=== PATIENT | male | born 1955 | race Caucasian/White ===

== ENCOUNTER → 2016-09-05 | Outpatient (CLI) | payer OTHER ==
[~2016-09-05] MED LIST: ASPI81TA50 PO; CELE100C PO; FEXO60TA25 PO; MULT-246 PO; OMEP20TA63 PO; SIMV40TA PO
--- NOTE | 2016-09-05 17:17 | KCIC ---
MR LUMBAR SPINE HISTORY:Reason For StudyReason: LOW BACK HIP PAIN / Spl. Instructions: / History: Pain about 3 weeks. Radiates from Lt hip to knee Technique: Sagittal T2, sagittal STIR, and sagittal T1-weighted images were obtained. Additional axial T1 and T2 weighted imaging was also performed. FINDINGS: Alignment and curvature are within normal limits. There are no compression fractures. Bone marrow signal is within normal limits. The conus terminates normally at the level of T12. Visualized intra-abdominal contents are within normal limits. The level of L5-S1 there is no spinal stenosis. The level of L4-L5 there is bilateral facet hypertrophy. There are moderate inflammatory changes associated with the left facet joint with facet joint effusions and adjacent synovial cysts. The edema extends into the left paravertebral spinous musculature. The presence of the synovial cyst causes severe left foraminal stenosis and left lateral recess stenosis probable for left L5 or L4 radiculopathy symptoms. The remaining intervertebral disc levels are well maintained. Impression: - There is acute facet inflammation involving the left facet joint at L4-L5. Septic facet arthritis cannot be excluded. The presence of left-sided synovial cysts causes severe left foraminal and lateral recess stenosis probable for left L4 or L5 radiculopathy symptoms. Correlate for clinical signs and symptoms of infection. An attempt was made to call the clinic where this patient receives regular medical care at 5:10 p.m. on 09/05/2016, however the office was closed and no physician was able to be contacted. Therefore this physician made a phone call to the patient's home phone number and a voicemail was left with instruction to seek further care if there are signs of fever. Electronically signed by: Olegario Rich (Sep 05, 2016 17:16:01)
== END | disposition home or self-care (01) ==
LOC: KCIC MRI 15:56
PROVIDERS: ATTEND Family Medicine
DX: M48.06 Spinal stenosis, lumbar region (principal); M71.38 Other bursal cyst, other site
CPT/HCPCS: 72148

== ENCOUNTER → 2019-07-27 | Outpatient (CLI) | payer OTHER ==
--- NOTE | 2019-07-27 15:27 | KCIC ---
CERVICAL SPINE WO CONTRAST DATE: 07/27/2019 9:30 AM INDICATION: Chronic neck pain TECHNIQUE: Multiplanar multisequence magnetic resonance imaging of the cervical spine was performed without administration of intravenous contrast using the standard cervical spine protocol. COMPARISON: None. FINDINGS: The cervical spine is normally aligned. No acute fracture. The intervertebral discs are normal. Bone marrow signal intensity is normal. The spinal cord is normal in signal intensity. On the limited views of the cranial cavity and brain, the cerebellum and bettye have normal morphology and signal characteristics. No Chiari malformation. Partially visualized right thyroid nodule measuring 2.5 cm. Normal signal voids are present in the vertebral arteries. C2-3: Disc osteophyte complex. Uncovertebral hypertrophy. Mild left facet arthropathy. Moderate left neural foraminal narrowing. No spinal stenosis. C3-4: Disc osteophyte complex. Uncovertebral hypertrophy. Moderate right and mild left facet arthropathy. Moderate bilateral neural foraminal narrowing. No spinal stenosis. C4-5: Disc osteophyte complex. Uncovertebral hypertrophy. Moderate right and mild left facet arthropathy. Moderate right and mild left neural foraminal narrowing. Mild spinal stenosis. C5-6: Disc osteophyte complex. Uncovertebral hypertrophy. Mild right and moderate left facet arthropathy. Mild right and moderate left neural foraminal narrowing. Mild spinal stenosis. C6-7: Disc osteophyte complex. Uncovertebral hypertrophy. Ligamentum flavum thickening. Mild bilateral neural facet arthropathy. Mild right and moderate to severe left neural foraminal narrowing. Moderate spinal stenosis. C7-T1: Uncovertebral hypertrophy. Mild facet arthropathy. Mild bilateral neural foraminal narrowing. No spinal stenosis. IMPRESSION: 1. Moderate cervical spondylosis, detailed level by level above. 2. Incompletely characterized right thyroid nodule measuring 2.5 cm. This could be further evaluated with dedicated thyroid ultrasound. Electronically signed by: Cam Hunter MD (07/27/2019 3:24 PM) [facility]
== END | disposition home or self-care (01) ==
LOC: KCIC MRI 09:08
PROVIDERS: ATTEND Family Medicine
DX: M48.03 Spinal stenosis, cervicothoracic region (principal); M47.812 Spondylosis without myelopathy or radiculopathy, cervical region; M12.88 Other specific arthropathies, not elsewhere classified, other specified site; M25.78 Osteophyte, vertebrae; E04.1 Nontoxic single thyroid nodule; G89.29 Other chronic pain
CPT/HCPCS: 72141

== ENCOUNTER → 2019-08-18 | Outpatient (CLI) | payer OTHER ==
[~2019-08-18] MED LIST changes: +CETI10TA24 PO
--- NOTE | 2019-08-18 21:57 | PAIN ---
DATE OF SERVICE: 08/18/2019 INITIAL CONSULTATION FOR PAIN CLINIC CHIEF COMPLAINT: Neck and bilateral upper extremity pain. HISTORY OF PRESENT ILLNESS: This is a 63-year-old male who presents with history of pain in the base of neck and shoulders, bilateral upper extremities, mostly in the shoulders. 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 The patient reports he has had physical therapy in the past, been doing stretching and strength exercises on his own, has had epidural steroid injections in the past as well, which were helpful, also trigger point injections, which were helpful. The patient is taking Tylenol as well as Motrin, neither of which is significantly decreased the pain. The patient reports it awakens him from sleep only very rarely, does not affect his bowel or bladder control or his ability to walk. He does have some low back pain as well, worse on the right side, but it is secondary to the neck and the patient describes the pain as intermittent in intensity, aching and dull, cramping, shooting in the upper extremities with repetitive motions, lifting items, working out. 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 The patient reports his disability rating from 0-10, 10 being the worst, is a 2 with family home responsibilities, recreation, occupation and sexual behavior, 0 with social activity and self-care, and 4 with life support activities. The patient did have MRI scan of the cervical spine as well as lumbar spine. Cervical spine is showing moderate cervical spondylosis with C3-C4 through C6-C7 disk osteophyte complexes, C5-C6 and C6-C7 shows mild right and moderate left neural foraminal narrowing and C5-C6, C6-C7 shows mild bilateral facet arthropathy, mild right and [id number] left neural foraminal narrowing with moderate spinal stenosis. PAST MEDICAL HISTORY: Significant for arthritis. PREVIOUS SURGERY: Include a left hip replacement in 2002, right hip replacement in 2002, lumbar laminectomy in 2016, tonsillectomy at age 6 and cholecystectomy in 2009, ORIF of left wrist 1984 and right foot surgery in 2009. CURRENT MEDICATIONS: Include Zyrtec, Zocor, Prilosec and daily baby aspirin. ALLERGIES: The patient has no known drug allergies. FAMILY HISTORY: Significant for diabetes and hypertension. SOCIAL HISTORY: The patient drinks about 1 alcoholic drink a week, does not smoke. Denies any illegal, illicit or recreational drugs. 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 REVIEW OF SYSTEMS: The patient's review of systems is positive for those items mentioned in history of present illness. All systems reviewed and otherwise negative. It is complete, full and well documented on the patient's chart. PHYSICAL EXAMINATION: VITAL SIGNS: The patient's blood pressure 140/94, pulse 68, respirations 16, temperature 98.2 degrees Fahrenheit, height is 5 feet 11 inches, weight is 227 pounds. GENERAL: The patient is awake, alert, oriented, appropriate, very pleasant demeanor. HEENT: Head shows normocephalic, atraumatic. Extraocular movements are intact and symmetrical. Oral cavity shows mucous membranes moist and pink. Dentition is intact. NECK: Shows anterior throat supple without palpable lymphadenopathy noted. Swallow reflex symmetrical. CHEST: Shows normal on inspection. Breath sounds are clear bilaterally. HEART: Shows S1, S2 clear. No murmurs auscultated. ABDOMEN: Soft, nontender, nondistended. No palpable organomegaly is noted. No rebound or guarding demonstrated. BACK: Shows spine grossly in the midline, normal-appearing cervical lordotic curvature, thoracic kyphotic curvature and lumbar lordotic curvature. Cervical paraspinous muscle shows symmetrical on inspection, on palpation shows some moderate tenderness diffusely in the inferior aspect of the cervical paraspinous musculature and superior medial trapezius bilaterally, but is symmetrical without evidence of atrophy, hypertrophy, no trigger points, no asymmetry. The patient has good rotational motion of cervical spine, both laterally greater than 45 degrees closer to 90 degrees right and left as well as full extension, full forward flexion without significant increase in pain. EXTREMITIES: The patient's upper extremities show deep tendon reflexes at 2+ in the biceps and triceps tendons. Motor exam is strong with [employer] worker strength rated at 5/5 as is bicep and tricep flexion without significant pain reported in the shoulders or neck. The patient shows good shoulder shrug without loss of strength on resistance with some mild tenderness in the bilateral shoulders and base of the neck, but without loss of strength on resistance. This is true with abduction of the shoulder to 90 degrees with no loss of strength on resistance as well. Peripheral pulses are 2+ radial. No peripheral edema is noted bilaterally. Upper extremities are warm and dry to touch, equal in color and appearance. The patient's lower extremities show deep tendon reflexes at 1+ in the patellar and tendo calcaneus tendons. Motor exam is strong with 5/5 dorsiflexion, extension, quadriceps and hamstring flexion. Peripheral pulses are 1+ posterior tibia. No peripheral edema is noted bilaterally. The patient's skin shows warm and dry, good turgor. No edema. No sores, rashes or bruising throughout. IMPRESSION: 1. This is a 63-year-old male with long history of neck, bilateral upper extremity pain, worse over the past year or so. 2. MRI scan of cervical spine as noted. 3. History of arthritis. PLAN: Options were discussed with the patient including conservative medical managements, physical therapies and interventional techniques. He would like to pursue interventional techniques as he has done well with these in the past by his report. We will wait for preauthorization with patient's insurance provider and have the patient return for cervical epidural steroid injection at the C6-C7 level, translaminar approach. In the meantime, the patient will try Medrol Dosepak. The patient was given instruction as well as side effects to be aware of with the medication and we will continue with stretching and strengthening exercises, and working out exercise as tolerated and he will return as scheduled. ESHA DANIELSON MD DR: FINESSE/ramesh JOB#: [id number] / [id number]
== END | disposition home or self-care (01) ==
LOC: PNCL 08:00
PROVIDERS: ATTEND Anesthesiology
DX: M54.2 Cervicalgia (principal); M79.601 Pain in right arm; M79.602 Pain in left arm; M19.90 Unspecified osteoarthritis, unspecified site; Z90.49 Acquired absence of other specified parts of digestive tract; Z96.643 Presence of artificial hip joint, bilateral
CPT/HCPCS: G0463

== ENCOUNTER → 2019-08-25 | Outpatient (CLI) | payer OTHER ==
[~2019-08-25] MED LIST changes: +IOHEXOL 180 MG/ML 10 ML VIAL. ONE; +methylPREDNISolone ACETATE 40 MG/ML VIAL. ONE; +methylPREDNISolone ACETATE 80 MG/ML VIAL. ONE
--- NOTE | 2019-08-25 09:08 | PAIN ---
DATE OF SERVICE: 08/25/2019 PROGRESS NOTE FOR PAIN CLINIC DIAGNOSES: 1. Cervical radiculopathy with cervical degenerative disk disease and cervical spinal stenosis. 2. Lumbar radiculopathy with lumbar degenerative disk disease and post-lumbar laminectomy syndrome. HISTORY OF PRESENT ILLNESS: The patient is a 63-year-old male who returns for followup status post initial evaluation and preauthorization for cervical epidural steroid injection. The patient reports still significant pain in the base of neck and right shoulder, upper extremity, but his main complaint is low back and right lower extremity pain, which has gotten worse since his last visit. He has had lumbar surgery at L4-L5 in the past and is having radicular pain down the right leg as well in the posterior gluteus, lateral thigh, anterior thigh, medial thigh to the medial calf. The patient reports the pain in the neck and shoulders likewise as significant, describes it as sharp and tight, stabbing, becoming more constant in both regions. The patient reports it is an 8 on a scale of 10 at its worst over the past week, 7 on average, 5 at its least and is a 7 today. The patient reports it awakens him from sleep at least 2-3 times a night, does not affect his bowel or bladder control and no loss of motor function. PHYSICAL EXAMINATION: VITAL SIGNS: The patient's blood pressure is 151/92, pulse 73, respirations are 18, temperature is 97.8 degrees Fahrenheit, height is 5 feet 11 inches, weight is 225 pounds. GENERAL: The patient is awake, alert, oriented, appropriate, very pleasant demeanor. HEENT: Head shows normocephalic, atraumatic. Extraocular movements are intact and symmetrical. Oral cavity: Mucous membranes moist and pink. Dentition is intact. NECK: Shows anterior throat supple without palpable lymphadenopathy noted. Swallow reflex symmetrical. CHEST: Shows normal on inspection. Breath sounds are clear to auscultation bilaterally. HEART: Shows S1, S2 clear. No murmurs auscultated. ABDOMEN: Soft, nontender, nondistended. No palpable organomegaly is noted. No rebound or guarding demonstrated. BACK: Shows spine grossly in the midline. Normal appearing thoracic kyphosis and cervical lordotic curvature. Lumbar lordotic curve is slightly flattened with well-healed surgical scar noted. Lumbar paraspinous muscle shows symmetrical on inspection, on palpation shows some moderate tenderness diffusely bilaterally going diffusely without significant radiation. The patient's cervical paraspinous muscle shows symmetrical on inspection, with palpation shows some mild tenderness diffusely in the inferior aspect of the cervical paraspinous musculature bilaterally, but only diffusely without significant radiation or atrophy or hypertrophy. The patient has good rotational motion of cervical spine, both laterally as well as extension and flexion without significant difficulty or pain reported. EXTREMITIES: Upper extremities show deep tendon reflexes 2+ in the biceps, triceps tendons. Motor exam is strong with small parts assembler strength rated at 5/5 as is biceps and triceps flexion. Lower extremities show deep tendon reflexes 1+ in the patellar and tendo calcaneus tendons. Motor exam is 4/5 with dorsiflexion, extension on the right and 5/5 on the left. Peripheral pulses are 1+ posterior tibial. No peripheral edema in the lower extremities as well. Options were discussed with the patient. The patient's old chart was reviewed as his current medication regimen updated. Current review of systems updated today as well. We will proceed with a cervical epidural steroid injection today with fluoroscopic guidance. Risks were again discussed including, but not limited to bleeding, infection, possibility of epidural hematoma, subsequent neurological compromise, dural puncture, headaches, spinal cord and/or nerve damage, side effects of steroid medication and poor results regarding pain control. The patient understands and wished to proceed. The patient will return to clinic in approximately 2 weeks for followup. He was counseled on return appointment, activity level and side effects to be aware of. We did discuss potential lumbar epidural steroid injection on his return. He does have a clinical L4-L5 right-sided lumbar radiculopathy. DIAGNOSES: Cervical radiculopathy with cervical degenerative disk disease and cervical spinal stenosis. PROCEDURE: Cervical epidural steroid injection, translaminar approach C6-C7 level using C-arm fluoroscopic guidance under sterile prep and drape using local anesthetic. MEDICATION INJECTED: A total of 120 mg Depo-Medrol plus 5 mL of preservative-free normal saline and 2 mL of contrast. CONDITION AT DISCHARGE: Stable. The patient tolerated the procedure well, had no complications. ESHA DANIELSON MD DR: FINESSE/ramesh JOB#: [id number] / [id number]
== END ==
LOC: PNCL 08:14
PROVIDERS: ATTEND Anesthesiology
DX: M50.123 Cervical disc disorder at C6-C7 level with radiculopathy (principal); M48.02 Spinal stenosis, cervical region
CPT/HCPCS: 62321; J1030; J1040; Q9965

== ENCOUNTER → 2019-09-14 | Outpatient (CLI) | payer OTHER ==
[~2019-09-14] MED LIST changes: +MIRA25TA PO
--- NOTE | 2019-09-15 00:46 | PAIN ---
DATE OF SERVICE: 09/14/2019 PROGRESS NOTE FOR PAIN CLINIC DIAGNOSES: 1. Cervical radiculopathy with cervical degenerative disk disease and cervical spinal stenosis. 2. Lumbar radiculopathy with lumbar degenerative disk disease and post-lumbar laminectomy syndrome. HISTORY OF PRESENT ILLNESS: The patient is a 63-year-old male who returns for followup status post cervical epidural steroid injection x 1 with very good results with the neck and shoulders with about 80% improvement. The patient reports his chief complaint is low back and right lower extremity pain. We have been awaiting preauthorization with his insurance provider. He has finally obtained that and would like to proceed today. We discussed a lumbar epidural steroid injection. The patient reports still significant pain in low back, right lower extremity, posterior gluteus, posterior thigh, lateral thigh and anterior thigh. The patient reports it is sharp and shooting, stabbing, tingling, radiating, constant with activity, worse with walking, standing and better with sitting or lying down, but does awaken him from sleep occasionally, but not most nights. The patient reports it is a 7 on a scale of 10 at its worst over the past week 5 on average, 3 at its least and is a 6 today. The patient reports it is sharp, stabbing and radiating. No new motor or sensory deficits. Reports no new bowel or bladder incontinence. PHYSICAL EXAMINATION: VITAL SIGNS: The patient's blood pressure 141/102, pulse 80, respirations 16, temperature 98.2 degrees Fahrenheit and weight is 228 pounds. GENERAL: The patient is awake, alert, oriented, appropriate, very pleasant demeanor. HEENT: Shows normocephalic, atraumatic. Extraocular movements intact and symmetrical. Oral cavity: Mucous membranes moist and pink. Dentition is intact. NECK: Shows anterior throat supple without palpable lymphadenopathy noted. Swallow reflex symmetrical. CHEST: Shows normal on inspection. Breath sounds are clear bilaterally. HEART: Shows S1, S2 clear. No murmurs auscultated. ABDOMEN: Soft, nontender, nondistended. BACK: Shows spine grossly in the midline. Normal-appearing thoracic kyphosis, cervical lordotic curvature and lumbar lordotic curvature is flattened with well-healed surgical scar noted in the midline. Lumbar paraspinous muscle shows symmetrical on inspection, on palpation shows some moderate tenderness diffusely bilaterally going diffusely without significant radiation. EXTREMITIES: The patient's lower extremities show deep tendon reflexes at 1+ in the patellar and tendo calcaneus tendons. Motor exam is approximately 4 on a scale of 5 on the right and 5/5 on the left with dorsiflexion and extension. Peripheral pulses are 1+. No peripheral edema is noted. Options were discussed with the patient. The patient's old chart was reviewed. His current medication regimen updated. Current review of systems updated today as well. We will proceed with a lumbar epidural steroid injection today with fluoroscopic guidance. Risks were again discussed including, but not limited to bleeding, infection, possibility of epidural hematoma, subsequent neurological compromise, dural puncture, headaches, spinal cord and/or nerve damage, side effects of steroid medication and poor results regarding pain control. The patient understands and wished to proceed. The patient will return to clinic in approximately 2 weeks for followup. She was counseled on return appointment, activity level and side effects to be aware of. DIAGNOSIS: Lumbar radiculopathy with lumbar degenerative disk disease and lumbar post-laminectomy syndrome. PROCEDURE: Lumbar epidural steroid injection, translaminar approach L5-S1 level using C-arm fluoroscopic guidance under sterile prep and drape using local anesthetic. MEDICATION INJECTED: A total of 120 mg Depo-Medrol plus 10 mL of preservative-free normal saline, 2 mL of contrast. CONDITION AT DISCHARGE: Stable. The patient tolerated the procedure well, had no complications. ESHA DANIELSON MD DR: FINESSE/ramesh JOB#: [id number] / [id number]
== END ==
LOC: PNCL 13:58
PROVIDERS: ATTEND Anesthesiology
DX: M51.16 Intervertebral disc disorders with radiculopathy, lumbar region (principal); M50.10 Cervical disc disorder with radiculopathy, unspecified cervical region; M96.1 Postlaminectomy syndrome, not elsewhere classified; M48.02 Spinal stenosis, cervical region
CPT/HCPCS: 62323; J1030; J1040; Q9965

== ENCOUNTER → 2019-09-29 | Outpatient (CLI) | payer OTHER ==
[~2019-09-29] MED LIST changes: -IOHEXOL 180 MG/ML 10 ML VIAL. ONE; -methylPREDNISolone ACETATE 40 MG/ML VIAL. ONE; -methylPREDNISolone ACETATE 80 MG/ML VIAL. ONE
--- NOTE | 2019-09-29 11:57 | PAIN ---
DATE OF SERVICE: 09/29/2019 PROGRESS NOTE FOR PAIN CLINIC DIAGNOSES: 1. Cervical radiculopathy with cervical degenerative disk disease and cervical spinal stenosis. 2. Lumbar radiculopathy with lumbar degenerative disk disease and lumbar post-laminectomy syndrome. HISTORY OF PRESENT ILLNESS: The patient is a 64-year-old male who returns for followup status post cervical epidural steroid injection x 1 with about 80% improvement and now lumbar epidural steroid injection x 1 with about 60% improvement. The patient reports it is still helpful with the pain even about 2 weeks since the injection. The patient reports still pain in the low back, right lower extremity, posterior gluteus, posterolateral thigh, lateral anterior thigh, posterior calf on the right side. The patient reports it is stabbing, aching, dull, tight, but much better than it was. The patient increased his distance of walking, doing work activities, sleeping much better. Still some trouble with the right side when he is rolling with sleep from one side to the other. The patient reports the pain is a 5 on a scale of 10 at its worst over the past week, 3 on average, 2 at its least and 3 today. The patient reports it is aching and sharp and stabbing in the right leg. The neck and shoulder is doing much better and he is quite pleased with his progress in that region. The patient reports no new motor or sensory deficits, no new bowel or bladder incontinence or other complaints. PHYSICAL EXAMINATION: VITAL SIGNS: The patient's blood pressure 161/102, pulse 84, respirations 16, temperature 98.6 degrees Fahrenheit, height is 5 feet 11 inches and weight is 221 pounds. GENERAL: The patient is awake, alert, oriented, appropriate, very pleasant demeanor. HEENT: Shows normocephalic, atraumatic. Extraocular movements are intact and symmetrical. Oral cavity: Mucous membranes moist and pink. Dentition is intact. NECK: Shows anterior throat supple without palpable lymphadenopathy noted. Swallow reflex symmetrical. CHEST: Shows normal on inspection. Breath sounds are clear bilaterally. HEART: Shows S1, S2 clear. No murmurs auscultated. ABDOMEN: Soft, nontender, nondistended. No palpable organomegaly is noted. No rebound or guarding demonstrated. BACK: Shows spine grossly in the midline. Normal appearing thoracic kyphosis and lumbar lordotic curvature. Lumbar paraspinous muscle shows symmetrical on inspection, on palpation shows some [id number] tenderness diffusely in the middle and lower distribution of paraspinous muscles, but only diffusely without significant radiation. Some mild tenderness over the posterior superior iliac spine on the right only but not the left. The patient does show good rotational motion of lumbar spine both laterally as well as extension and flexion without significant pain reported. EXTREMITIES: The patient's lower extremities show deep tendon reflexes 1+ in the patellar and tendo calcaneus tendons. Motor exam is 4 on a scale of 5 on the right with quadriceps and hamstring flexion and 5/5 on the left. Peripheral pulses are 1+ posterior tibia. No peripheral edema is noted. IMPRESSION: Options were discussed with the patient. The patient's old chart was reviewed as his current medication regimen updated. Current review of systems updated today as well. We will preauthorize the patient for a second lumbar epidural steroid injection. The patient will try Medrol Dosepak in the meantime as he had good success with these in the past. The patient was given instruction as well as side effects to be aware of with the medication and will follow up for lumbar epidural steroid injection at L5-S1 translaminar approach as scheduled. ESHA DANIELSON MD DR: FINESSE/ramesh JOB#: [id number] / [id number]
== END ==
LOC: PNCL 09:31
PROVIDERS: ATTEND Anesthesiology
DX: M51.16 Intervertebral disc disorders with radiculopathy, lumbar region (principal); M96.1 Postlaminectomy syndrome, not elsewhere classified; M50.10 Cervical disc disorder with radiculopathy, unspecified cervical region; M48.02 Spinal stenosis, cervical region
CPT/HCPCS: G0463

== ENCOUNTER → 2019-10-13 | Outpatient (CLI) | payer OTHER ==
[~2019-10-13] MED LIST changes: +IOHEXOL 180 MG/ML 10 ML VIAL. ONE; +TELM40TA PO; +methylPREDNISolone ACETATE 40 MG/ML VIAL. ONE; +methylPREDNISolone ACETATE 80 MG/ML VIAL. ONE
--- NOTE | 2019-10-13 11:11 | PAIN ---
DATE OF SERVICE: 10/13/2019 PROGRESS NOTE FOR PAIN CLINIC DIAGNOSES: 1. Lumbar radiculopathy with lumbar degenerative disk disease and lumbar post-laminectomy syndrome. 2. Cervical radiculopathy with cervical degenerative disk disease and cervical spinal stenosis. HISTORY OF PRESENT ILLNESS: The patient is a 64-year-old male who returns for followup status post lumbar epidural steroid injection x 1 as well as cervical epidural steroid injection x 1 each with very good success. The patient reports about 80% improvement with the cervical spine and about 60% with the lumbar spine injections. The patient reports his main complaint is low back and right lower extremity pain, posterior gluteus, posterior thigh, and lateral thigh. The patient reports it is sharp, tight, stabbing, is thigh is doing better though and he is gradually getting more and more improvement. The patient reports it is a 4 on a scale of 10 at its worst in the past week, 3 on average, 2 at its least and is a 3 today. The patient reports no new motor or sensory deficits, no new bowel or bladder incontinence and increase doing household activities with greater ease and comfort, sleeping better as well. It does not awaken him from sleep. PHYSICAL EXAMINATION: VITAL SIGNS: The patient's blood pressure is 149/95, pulse 71, respirations 20, temperature is 98.6 degrees Fahrenheit, height is 5 feet 11 inches and weight is 230 pounds. GENERAL: The patient is awake, alert, oriented, appropriate, very pleasant demeanor. HEENT: Head shows normocephalic, atraumatic. Extraocular movements are intact and symmetrical. Oral cavity: Mucous membranes moist and pink. Dentition is intact. NECK: Shows anterior throat supple without palpable lymphadenopathy noted. Swallow reflex symmetrical. CHEST: Shows normal on inspection. Breath sounds clear to auscultation bilaterally. HEART: Shows S1, S2 clear. No murmurs auscultated. ABDOMEN: Soft, nontender, nondistended. BACK: Shows spine grossly in the midline. Normal appearing thoracic kyphosis, cervical lordotic curvature and some flattening of lumbar lordotic curvature. Lumbar well-healed surgical scar noted. Lumbar paraspinous muscle shows symmetrical on inspection, with palpation shows some moderate tenderness diffusely in the low lumbar distribution bilaterally, but only diffusely without significant radiation. The patient has good rotational motion of lumbar spine, both laterally as well as extension and flexion without difficulty. EXTREMITIES: The patient's lower extremities show deep tendon reflexes at 1+ in the patellar and tendo calcaneus tendons. Motor exam is approximately 4 on a scale of 5 on the right with dorsiflexion and extension, 5/5 on the left. Peripheral pulses are 1+ posterior tibia. No peripheral edema is noted. Options were discussed with the patient. The patient's old chart was reviewed as well as his current medication regimen updated. Current review of systems was updated today as well. We will proceed with the second in this series lumbar epidural steroid injection today with fluoroscopic guidance. Risks were again discussed including, but not limited to bleeding, infection, possibility of epidural hematoma, subsequent neurological compromise, dural puncture, headaches, spinal cord and/or nerve damage, side effects of steroid medication and poor results regarding pain control. The patient understands and wished to proceed. The patient will return to clinic in approximately 2 weeks for followup. He was counseled on return appointment, activity level and side effects to be aware of. DIAGNOSIS: Lumbar radiculopathy with lumbar degenerative disk disease and lumbar post-laminectomy syndrome. PROCEDURE: Lumbar epidural steroid injection, translaminar approach L5-S1 level using C-arm fluoroscopic guidance under sterile prep and drape using local anesthetic. MEDICATION INJECTED: A total of 120 mg Depo-Medrol plus 10 mL of preservative-free normal saline and 2 mL of contrast. CONDITION AT DISCHARGE: Stable. The patient tolerated the procedure well, had no complications. ESHA DANIELSON MD DR: FINESSE/ramesh JOB#: [id number] / [id number]
== END | disposition home or self-care (01) ==
LOC: PNCL 09:30
PROVIDERS: ATTEND Anesthesiology
DX: M51.16 Intervertebral disc disorders with radiculopathy, lumbar region (principal); M96.1 Postlaminectomy syndrome, not elsewhere classified; M50.123 Cervical disc disorder at C6-C7 level with radiculopathy; M48.02 Spinal stenosis, cervical region; Z98.890 Other specified postprocedural states
CPT/HCPCS: 62323; J1030; J1040; Q9965

== ENCOUNTER → 2021-06-25 | Outpatient (CLI) | payer OTHER ==
[~2021-06-25] MED LIST changes: -CETI10TA24 PO; +CETI10TA74 PO; -IOHEXOL 180 MG/ML 10 ML VIAL. ONE; -methylPREDNISolone ACETATE 40 MG/ML VIAL. ONE; -methylPREDNISolone ACETATE 80 MG/ML VIAL. ONE
--- NOTE | 2021-06-25 15:20 | PDOC ---
Progress Note - Pain Clinic Date of Service: DOS: DATE: 06/25/21 TIME: 15:16 Diagnosis: Dx: Cervical radiculopathy with cervical degenerative disease and cervical spinal stenosis Lumbar radiculopathy with lumbar degenerative disease and lumbar postlaminectomy syndrome History or Present Illness: HPI: 65-year-old male returns status post cervical epidural steroid injection and lumbar epidural injection last seen October 2019 patient very well with about 80% improvement with a cervical injection and 75% improvement with the lumbar injections patient reports pain is returning in both regions but his main complaint is neck and right upper extremity with radicular pain in the right shoulder right upper extremity right posterior deltoid into the triceps and into the forearm with repetitive motions of weightbearing and lifting, 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 Patient reports no loss of motor function but significant fatigability of the right upper extremity with repetitive motion reaching over his head with his right hand and disturbed sleep occasionally patient reports most night he sleeps fairly well however patient reports the pain is an 8 on scale 10 is worse over the past week 5 on average to its least and is a 5 today patient scribes aching sharp tight shooting can be constant and severe in the right upper extremity as well. Patient reports no motor loss no bowel or bladder incontinence. Physical Exam: VS: Blood pressure is 136/77 pulse is 73 respirations are 18 temperature is 98.8 F height is 511 inches weight is 239 pounds PE: PHYSICAL EXAMINATION: GENERAL: The patient is awake, alert, oriented, appropriate, very pleasant in demeanor HEENT: Shows normocephalic, atraumatic. Extraocular movements are intact and symmetrical. Oral cavity: Mucous membranes moist and pink. Dentition is intact. NECK: Shows anterior throat supple without palpable lymphadenopathy noted. Swallow reflex symmetrical. CHEST: Shows normal on inspection. Breath sounds are clear bilaterally, distant no rales rhonchi or wheezes auscultated. HEART: Shows S1, S2 clear. No murmurs auscultated. ABDOMEN: Soft, nontender, nondistended. No palpable organomegaly is noted. BACK: Shows spine grossly in the midline. Normal-appearing cervical lordotic curvature. Cervical paraspinous muscles show symmetrical with inspection, on palpation some moderate tenderness diffusely in the inferior aspect the cervical paraspinous muscles on the right with radiation to the superior medial trapezius but without trigger points without atrophy hypertrophy. Patient is full rotation motion cervical spine both laterally as well as full extension full forward flexion without significant difficulty. There is slightly increased thoracic kyphosis, some minor flattening of the lumbar lordotic curvature. Lumbar paraspinous muscles show symmetrical on inspection, on palpation shows some moderate tenderness diffusely throughout the upper, middle and lower distribution of the paraspinous muscles without specific trigger points, without radiation of pain. The patient has good rotational motion of the lumbar spine, both laterally as well as extension and flexion without significant difficulty. No tenderness over the spinous processes, sacrum or sacroiliac regions. EXTREMITIES: Lower extremities show deep tendon reflexes 2+ in the patellar and tendo calcaneus tendons. Motor exam is 4 on a scale of 5 with right dorsiflexion, extension, quadriceps and hamstring flexion and 5/5 on the left. Peripheral pulses are 1+ posterior tibial. No peripheral edema is noted bilaterally. Lower extremities are warm and dry to touch, equal in color and appearance. Upper extremity show deep tendon reflexes 2+ in the bicep biceps tendons, motor exam strong with copyright expert strength rated 5 out of 5 as is bicep and tricep flexion bilaterally. Peripheral pulses are 2+ radial no peripheral edema is noted bilaterally. Shoulder shrug strong and intact without loss of strength on resistance bilaterally. SKIN: Shows warm and dry, good turgor. No edema. No sores, rashes or bruising throughout. Procedure: Procedure: Options were discussed with the patient. Patient's old chart was reviewed his current medication regimen updated current review of systems updated today as well. We will preauthorize patient for a cervical epidural steroid injection with clinical radicular symptoms in the C6-7 dermatomal distribution on the right. Once approved patient return for a translaminar approach C6-7 cervical epidural steroid injection with fluoroscopic guidance. In the meantime, patient continue with stretching strength exercise as well as oral analgesics as currently. Medication Injected: Med Injected: None Condition at Discharge: Condition at Discharge: Condition at discharge is stable. ESHA DANIELSON MD Jun 25, 2021 15:20
== END | disposition home or self-care (01) ==
LOC: PNCL 14:15
PROVIDERS: ATTEND Anesthesiology
DX: M50.10 Cervical disc disorder with radiculopathy, unspecified cervical region (principal); M48.02 Spinal stenosis, cervical region; M51.16 Intervertebral disc disorders with radiculopathy, lumbar region; M96.1 Postlaminectomy syndrome, not elsewhere classified; Z79.82 Long term (current) use of aspirin; Z79.899 Other long term (current) drug therapy
CPT/HCPCS: 99212; G0463

== ENCOUNTER → 2021-07-08 | Outpatient (CLI) | payer OTHER ==
[~2021-07-08] MED LIST changes: +IOHEXOL 180 MG/ML 10 ML VIAL. ONE; +methylPREDNISolone ACETATE 80 MG/ML VIAL. ONE
--- NOTE | 2021-07-08 09:20 | PDOC ---
Progress Note - Pain Clinic Date of Service: DOS: DATE: 07/08/21 TIME: 09:16 Diagnosis: Dx: Cervical radiculopathy with cervical degenerative disc disease and cervical spinal stenosis Lumbar radiculopathy with lumbar degenerative disc disease and lumbar postlaminectomy syndrome History or Present Illness: HPI: 65-year-old male returns for evaluation with significant pain in the neck and right upper extremity with radiating into the right arm patient reports also significant pain increasing now in the back with radiating into the right lower extremity posterior gluteus posterior thigh posterior calf which is actually his worst complaint patient reports that sharp and stinging in the back constant aching in the leg worse with walking standing wakes him from sleep occasionally but is much better with laying down or sitting patient reports the neck and shoulder still significantly painful as well on the right side with repetitive motions reaching over his head with his right hand as well as sleeping on the right side patient rates his pain as 8 on scale 10 is worse over the past week 6-7 on average 3 to [place] is a 7 today patient reports back is becoming more noticeable neck is about the same with radiating to the right arm and also over the back rating to the right leg and radicular fashion with each region. Patient reports no loss of function but significant fatigability with repetitive motions with the right upper extremity as well as driving and also with walking with the right leg. Physical Exam: VS: Blood pressure is 126/82 pulse 75 respirations 18 temperature 90.9 F height is 5 foot 11 inches weight is 238 pounds. PE: PHYSICAL EXAMINATION: GENERAL: The patient is awake, alert, oriented, appropriate, very pleasant in demeanor HEENT: Shows normocephalic, atraumatic. Extraocular movements are intact and symmetrical. Oral cavity: Mucous membranes moist and pink. NECK: Shows anterior throat supple without palpable lymphadenopathy noted. Swallow reflex symmetrical. CHEST: Shows normal on inspection. Breath sounds are clear bilaterally, no rales or rhonchi. HEART: Shows S1, S2 clear. No murmurs auscultated. ABDOMEN: Soft, nontender, nondistended. No palpable organomegaly is noted. BACK: Shows spine grossly in the midline. Normal-appearing cervical lordotic curvature. Cervical paraspinous muscles show symmetrical inspection, on palpation some moderate tenderness diffusely throughout the upper middle lower distribution paraspinous muscles more on the right than left but present bilaterally also into the right superior medial trapezius on the right side but without trigger points or radiation. Patient shows good rotation motion cervical spine with lateral as well as full extension full forward flexion without significant difficulty. There is slightly increased thoracic kyphosis, some minor flattening of the lumbar lordotic curvature. Lumbar paraspinous muscles show symmetrical on inspection, on palpation shows some moderate tenderness diffusely throughout the upper, middle and lower distribution of the paraspinous muscles without specific trigger points, without radiation of pain. The patient has good rotational motion of the lumbar spine, both laterally as well as extension and flexion without significant difficulty. No tenderness over the spinous processes, sacrum or sacroiliac regions. EXTREMITIES: Lower extremities show deep tendon reflexes 2+ in the patellar and tendo calcaneus tendons. Motor exam is 4 on a scale of 5 with right dorsiflexion, extension, quadriceps and hamstring flexion and 5/5 on the left. Peripheral pulses are 1+ posterior tibial. No peripheral edema is noted bilat erally. Lower extremities are warm and dry to touch, equal in color and appearance. Upper extremity show deep tendon reflexes 2+ in the bicep triceps tendons, motor exam strong with 5 5 bag washer strength bicep and tricep flexion and symmetrical. Shoulder shrug is strong and intact with some moderate tenderness but without loss of strength on resistance bilaterally. SKIN: Shows warm and dry, good turgor. No edema. No sores, rashes or bruising throughout. Procedure: Procedure: Options discussed with patient. Patient chart was reviewed his current medication regimen updated current review of systems updated today as well. We will proceed with a cervical epidural steroid injection today with fluoroscopic guidance. Risks were discussed including but not limited to: Bleeding, infection, possibility of epidural hematoma and subsequent neurological compro mise, dural puncture, headaches, spinal cord and/or nerve damage, side effects of steroid medication, and poor results regarding pain control. Patient understands and wished to proceed. Patient return to clinic in approximately 2 weeks for follow-up, was counseled as return appointment, activity level, and side effect to be aware of. Medication Injected: Med Injected: Procedure cervical epidural steroid injection at the C6-7 level, using local anesthetic under sterile prep and drape using C-arm fluoroscopic guidance under local anesthesia medications injected ;120 mg Depo-Medrol +5 mL normal saline and 2 mL contrast; condition at discharge is stable patient tolerated procedure well. and had no complications Condition at Discharge: Condition at Discharge: Condition at discharge is stable, patient tolerated procedure well and had no complications. ESHA DANIELSON MD Jul 08, 2021 09:20
--- NOTE | 2021-07-08 09:20 | PDOC4 ---
Procedure Note: ICD 10 Code: ICD 10 Code: M54.12 M50.30 M4 8.02 Procedure Note: Patient was consented for cervical epidural steroid injection fluoroscopic guidance. Risks were discussed including but not limited to: Bleeding, infection, possibility of epidural hematoma and subsequent neurological compromise, dural puncture, headaches, spinal cord and/or nerve damage, side effects of steroid medication, and poor results regarding pain control. Patient understands and wished to proceed. Procedure cervical epidural steroid injection at the C6-7 level, using local anesthetic under sterile prep and drape using C-arm fluoroscopic guidance under local anesthesia medications injected ;120 mg Depo-Medrol +5 mL normal saline and 2 mL contrast; condition at discharge is stable patient tolerated procedure well. and had no complications ESHA DANIELSON MD Jul 08, 2021 09:20
== END | disposition home or self-care (01) ==
LOC: PNCL 08:32
PROVIDERS: ATTEND Anesthesiology
DX: M50.10 Cervical disc disorder with radiculopathy, unspecified cervical region (principal); M54.12 Radiculopathy, cervical region; M48.02 Spinal stenosis, cervical region; M51.16 Intervertebral disc disorders with radiculopathy, lumbar region; M96.1 Postlaminectomy syndrome, not elsewhere classified; Z79.82 Long term (current) use of aspirin; Z79.899 Other long term (current) drug therapy
CPT/HCPCS: 62321; J1040; Q9965; 62323

== ENCOUNTER → 2021-08-05 | Outpatient (CLI) | payer OTHER ==
--- NOTE | 2021-08-05 10:24 | PDOC ---
Progress Note - Pain Clinic Date of Service: DOS: DATE: 08/05/21 TIME: 10:21 Diagnosis: Dx: Cervical radiculopathy with cervical degenerative disease and cervical spinal stenosis Lumbar radiculopathy with lumbar degenerative disc disease and lumbar postlaminectomy syndrome History or Present Illness: HPI: 65-year-old male returns for follow-up status post cervical epidural steroid injection x1. Patient reports about 80% improvement in his neck and right upper extremity his main complaint however is low back pain today with pain low back radiating the right lower extremity posterior gluteus posterior thigh posterior calf lateral thigh and calf as well patient reports is a 5 on a scale 10 is worst for an average 3 its least over the past week is a 4 today. Patient reports no loss of motor function but significant debility with the right leg and low back with walking standing changing positions. Patient reports no bowel or bladder incontinence reports is much better with sitting or laying down generally is not awakening from sleep at night. Patient reports his upper extremity is doing much better is increase his activity with greater ease and comfort has noticed when he is lifting heavier items though it does exacerbate the pain to some extent on the right side in the shoulder and arm and has been avoiding those activities as best he can. Physical Exam: VS: Blood pressure is 140/93 pulse 79 respirations 18 temperature 90.3 F height 5 feet 9 inches weight is 240 pounds. PE: PHYSICAL EXAMINATION: GENERAL: The patient is awake, alert, oriented, appropriate, very pleasant in demeanor HEENT: Shows normocephalic, atraumatic. Extraocular movements are intact and symmetrical. Oral cavity: Mucous membranes moist and pink. Dentition is intact. NECK: Shows anterior throat supple without palpable lymphadenopathy noted. Swallow reflex symmetrical. CHEST: Shows normal on inspection. Breath sounds are clear bilaterally, no rales or rhonchi auscultated. HEART: Shows S1, S2 clear. No murmurs auscultated. ABDOMEN: Soft, nontender, nondistended. No palpable organomegaly is noted. BACK: Shows spine grossly in the midline. Normal-appearing cervical lordotic curvature. There is slightly increased thoracic kyphosis, some flattening of the lumbar lordotic curvature with well-healed surgical scarring. Lumbar paraspinous muscles show symmetrical on inspection, on palpation shows some moderate tenderness diffusely throughout the upper, middle and lower distribution of the paraspinous muscles without specific trigger points, without radiation of pain. The patient has good rotational motion of the lumbar spine, both laterally as well as extension and flexion without significant difficulty. No tenderness over the spinous processes, sacrum or sacroiliac regions. EXTREMITIES: Lower extremities show deep tendon reflexes 2+ in the patellar and tendo calcaneus tendons. Motor exam is 4 on a scale of 5 with right dorsiflexion, extension, quadriceps and hamstring flexion and []/5 on the left. Peripheral pulses are 1+ posterior tibial. No peripheral edema is noted bilaterally. Lower extremities are warm and dry to touch, equal in color and appearance. SKIN: Shows warm and dry, good turgor. No edema. No sores, rashes or bruising throughout. Procedure: Procedure: Options discussed with patient. Patient chart reviews his current medication regimen updated current review of systems updated today as well. We will proceed with a lumbar epidural steroid injection today with fluoroscopic guidance. Risks were discussed including but not limited to: Bleeding, infection, possibility of epidural hematoma and subsequent neurological compromise, dural puncture, headaches, spinal cord and/or nerve damage, side effects of steroid medication, and poor results regarding pain control. Patient understands and wished to proceed. Patient will return to the clinic in approximately 2 weeks for follow-up, was counseled as to return appointment, activity level, and side effects beware of. Medication Injected: Med Injected: Procedure is lumbar epidural steroid injection under local anesthetic using sterile prep and drape at the L5-S1 level using C-arm fluoroscopic guidance in both AP and lateral views medications injected is 120 mg Depo-Medrol +10mL preservative-free normal saline and 2 mL contrast- condition at discharge is stable patient tolerated procedure well had no complications. Condition at Discharge: Condition at Discharge: Condition at discharge is stable, patient tolerated procedure well and had no complications. ESHA DANIELSON MD Aug 05, 2021 10:24
--- NOTE | 2021-08-05 10:25 | PDOC4 ---
Procedure Note: ICD 10 Code: ICD 10 Code: M54.16 M51.36 M4 8.06 M 96.1 Procedure Note: Patient was consented for lumbar epidural steroid injection with fluoroscopic guidance. Risks were discussed including but not limited to: Bleeding, infection, possibility of epidural hematoma and subsequent neurological compromise, dural puncture, headaches, spinal cord and/or nerve damage, side effects of steroid medication, and poor results regarding pain control. Patient understands and wished to proceed. Procedure is lumbar epidural steroid injection under local anesthetic using sterile prep and drape at the L5-S1 level using C-arm fluoroscopic guidance in both AP and lateral views medications injected is 120 mg Depo-Medrol +10mL preservative-free normal saline and 2 mL contrast- condition at discharge is stable patient tolerated procedure well had no complications. ESHA DANIELSON MD Aug 05, 2021 10:25
== END | disposition home or self-care (01) ==
LOC: PNCL 09:34
PROVIDERS: ATTEND Anesthesiology
DX: M51.16 Intervertebral disc disorders with radiculopathy, lumbar region (principal); M48.061 Spinal stenosis, lumbar region without neurogenic claudication; M96.1 Postlaminectomy syndrome, not elsewhere classified; M50.10 Cervical disc disorder with radiculopathy, unspecified cervical region; M48.02 Spinal stenosis, cervical region; Z79.82 Long term (current) use of aspirin; Z79.899 Other long term (current) drug therapy
CPT/HCPCS: 62323; J1040; Q9965